=== PATIENT | male | born 1980 | race Two or more races ===

== ENCOUNTER 2023-05-28 07:04 | Emergency (ER) | payer MEDICAID, OTHER ==
[~2023-05-28] VITALS: Ht 172.7 cm; Wt 100.9 kg
[2023-05-28] MEDS ORDERED: IBUP-1456 PO (08:42)
[2023-05-28] MEDS ORDERED: METH-1182 PO (08:42)
[2023-05-28 08:44] VITALS: BP 153/99; PULSE 92; RESP 16; TEMP 97.5; O2SAT 98
== END 2023-05-28 08:49 | disposition home or self-care (01) ==
LOC: ER 07:04
DX: S39.012A Strain of muscle, fascia and tendon of lower back, initial encounter (principal); S83.8X2A Sprain of other specified parts of left knee, initial encounter; S83.91XA Sprain of unspecified site of right knee, initial encounter; V43.52XA Car driver injured in collision with other type car in traffic accident, initial encounter; Y93.89 Activity, other specified; Y92.488 Other paved roadways as the place of occurrence of the external cause; Y99.8 Other external cause status
CPT/HCPCS: 72100